=== PATIENT | female | born 1965 | race American Indian/Alaskan Native ===

== ENCOUNTER 2018-02-13 07:55 | Outpatient (CLI) | payer MEDICARE ==
--- NOTE | 2018-02-13 10:33 | Fluoroscopy Report ---
UPPER GI SERIES WITH AIR-CONTRAST History: Gastroesophageal reflux disease without esophagitis. Comparison: None at this facility. Findings: [employer] film of the abdomen demonstrates a normal bowel gas pattern. A lap band device is identified in the left paraspinal region with phi angle measuring 28 degrees. Deglutition is normal. The esophagus is normal caliber and mucosal pattern throughout. Normal motility. No hiatal hernia. There is easy passage of the contrast agent through the lap band. There is no evidence for slippage, erosion or obstruction. If anything, the lap band may be slightly loose. No significant episodes of gastroesophageal reflux were witnessed during this exam. The gastric cavity, duodenal bulb and duodenal sweep are normal. IMPRESSION: Essentially normal exam. The lap band appears in good position. I only question if the lap band is slightly loose due to the easy passage of contrast. No episodes of reflux were witnessed during this exam.
== END 2018-02-13 07:56 | disposition home or self-care (01) ==
LOC: FLUORO 07:55
PROVIDERS: ATTEND Specialist
DX: K30 Functional dyspepsia (principal); K21.9 Gastro-esophageal reflux disease without esophagitis; Z88.8 Allergy status to other drugs, medicaments and biological substances
CPT/HCPCS: 74247

== ENCOUNTER → 2018-03-14 | Outpatient (CLI) | payer MEDICARE | END | disposition home or self-care (01) | LOC: SLR 11:00 | PROVIDERS: ATTEND Otolaryngology | DX: G47.33 Obstructive sleep apnea (adult) (pediatric) (principal); R40.0 Somnolence; R06.83 Snoring | CPT/HCPCS: 95810 ==